=== PATIENT | female | born 1990 | race African-American/Black ===

== ENCOUNTER 2017-01-01 02:40 | Emergency (ER) | payer SELFPAY ==
[2017-01-01 03:44] LABS: ABSOLUTE MONOCYTES (AUTO) 0.8 10^3/uL (0.1-1.4); BASOPHILS % (AUTO) 0.4 % (0-2); EOSINOPHILS % (AUTO) 0.3 % (0-6); HEMATOCRIT 38.4 % (36.0-47.0); HEMOGLOBIN 13.2 g/dL (12.0-15.5); HGB HCT DIFFERENCE 1.2; LYMPHOCYTES % (AUTO) 11.3 % (13-45); MEAN CORPUSCULAR HEMOGLOBIN 32.2 pg (27.0-33.4); MEAN CORPUSCULAR HGB CONC 34.3 g/dL (32.0-36.0); MEAN CORPUSCULAR VOLUME 94 fl (80-97); MONOCYTES % (AUTO) 8.7 % (3-13); RED BLOOD COUNT 4.09 10^6/uL (3.72-5.28); RED CELL DISTRIBUTION WIDTH 13.3 % (11.5-14.0); SEGMENTED NEUTROPHILS % (AUTO) 79.3 % (42-78); WHITE BLOOD COUNT 8.9 10^3/uL (4.0-10.5)
[2017-01-01 03:57] LABS: ANION GAP 9 (5-19); BLOOD UREA NITROGEN 8 mg/dL (7-20); CARBON DIOXIDE 25 mmol/L (22-30); CHLORIDE 106 mmol/L (98-107); CREATININE RESULT 0.72 mg/dL (0.52-1.25); GLUCOSE 109 mg/dL (75-110); LIPASE 50.4 U/L (23-300); POTASSIUM 3.4 mmol/L (3.6-5.0); SODIUM 139.6 mmol/L (137-145)
[2017-01-01 04:00] LABS: APPEARANCE,URINE SLIGHTLY-CLOUDY; BILIRUBIN,URINE NEGATIVE (NEGATIVE); GLUCOSE, URINE NEGATIVE (NEGATIVE); KETONES,URINE TRACE mg/dL (NEGATIVE); LEUKOCYTE ESTERASE,URINE MODERATE (NEGATIVE); NITRITE,URINE POSITIVE (NEGATIVE); PROTEIN,URINE NEGATIVE (NEGATIVE); URINE SPECIFIC GRAVITY 1.012; UROBILINOGEN,URINE NEGATIVE mg/dL (<2.0)
[2017-01-01] MEDS ORDERED: KETOROLAC TROMETHAMINE INJ/PF 30 MG/1 ML SDV IV ONE (04:27)
[2017-01-01] MEDS ORDERED: PROCHLORPERAZINE EDISYLATE INJ 10 MG/2 ML VIAL IM ONE (04:27)
[2017-01-01] MEDS ORDERED: DIPHENHYDRAMINE HCL 50 MG/ML VIAL IV ONE (04:27)
[2017-01-01] MEDS ORDERED: IBUPROFEN 400 MG TABLET PO ONE (04:28)
--- NOTE | 2017-01-01 04:28 | ER Document Report ---
ED GI/ - General Chief Complaint: Flank Pain Stated Complaint: RIGHT FLANK PAIN Notes: Patient is a 26-year-old female presents emergency Department complaining of back pain, migraine, fever and nausea with vomiting. Patient states that all the symptoms started yesterday. She took Percocet for her pain that she threw it up. Patient states that Percocet makes her vomit. Admits to pelvic pain but denies any pyuria or hematuria. Last period was 12/21/2016. Does not have a primary care provider Denies any past medical history Past surgical history significant for D&C and tonsils and adenoids Social history is a 1 year pack smoker, denies any alcohol or drug use Allergies to Keflex TRAVEL OUTSIDE OF THE [place] IN LAST 30 DAYS: No - Related Data Allergies/Adverse Reactions: cephalexin [From [employer]] Allergy (Verified 01/01/17 02:49) Past Medical History - Social History Smoking Status: Current Every Day Smoker Family History: Reviewed & Not Pertinent Renal/ Medical History: Denies: Hx Peritoneal Dialysis Past Surgical History: Reports: Hx Adenoidectomy, Hx Tonsillectomy - Immunizations Hx Diphtheria, Pertussis, Tetanus Vaccination: Yes - unk Review of Systems - Review of Systems Constitutional: See HPI EENT: No symptoms reported Cardiovascular: No symptoms reported Respiratory: No symptoms reported Gastrointestinal: See HPI Genitourinary: See HPI Female Genitourinary: No symptoms reported Musculoskeletal: No symptoms reported Skin: No symptoms reported Hematologic/Lymphatic: No symptoms reported Neurological/Psychological: See HPI Physical Exam - Vital signs Vitals: Temp Pulse Resp BP Pulse Ox 101 F H 116 H 22 H 113/68 96 01/01/17 02:49 01/01/17 02:49 01/01/17 02:49 01/01/17 02:49 01/01/17 02:49 - Notes Notes: PHYSICAL EXAM GENERAL: Alert, interacts well. HEAD: Normocephalic, atraumatic. EYES: Pupils equal, round, and reactive to light. Extraocular movements intact. ENT: Oral mucosa moist, tongue midline. NECK: Full range of motion. Supple. Trachea midline. LUNGS: Clear to auscultation bilaterally, no wheezes, rales, or rhonchi. No respiratory distress. HEART: Regular rate and rhythm. No murmurs, gallops, or rubs. ABDOMEN: Soft, nondistended, nontender. No guarding, rebound, or rigidity.. Bowel sounds present in all 4 quadrants. Back: Tenderness to palpation on the right paraspinous muscles. Denies CVA tenderness EXTREMITIES: Moves all 4 extremities spontaneously. No edema, radial and dorsalis pedis pulses 2/4 bilaterally. No cyanosis. NEUROLOGICAL: Alert and oriented x3. Normal speech. PSYCH: Normal affect, normal mood. SKIN: Warm, dry, normal turgor. No rashes or lesions noted. Course - Re-evaluation Re-evalutation: 01/01/17 06:27 Patient is a 26-year-old female presents emergency Department with HIS symptoms. Currently he was afebrile, no acute distress and afebrile. Labs and urinalysis reveal evidence of UTI without any evidence of acute kidney infection. No leukocytosis on CBC. Will discharge patient home with antibiotics and pain medication and follow-up with primary care provider - Vital Signs Vital signs: Temp Pulse Resp BP Pulse Ox 98.9 F 78 15 112/69 98 01/01/17 05:58 01/01/17 05:58 01/01/17 05:58 01/01/17 05:58 01/01/17 05:58 - Laboratory Result Diagrams: 01/01/17 03:30 01/01/17 03:30 Laboratory results interpreted by me: 01/01/17 01/01/17 01/01/17 03:30 03:30 03:30 Plt Count 132 L Seg Neutrophils % 79.3 H Lymphocytes % 11.3 L Potassium 3.4 L Urine Ketones TRACE H Urine Blood MODERATE H Urine Nitrite POSITIVE H Ur Leukocyte Esterase MODERATE H Discharge - Discharge Clinical Impression: UTI (urinary tract infection) Condition: Good Disposition: HOME, SELF-CARE Additional Instructions: URINARY TRACT INFECTION: Your evaluation indicates that you have a urinary tract infection. This is due to germs growing in the bladder. This is a common problem. This infection usually responds quickly to antibiotics. Your antibiotic should be taken exactly as prescribed. Drink plenty of fluids -- three to four quarts a day. Occasionally, a bladder anesthetic will be prescribed to help stop the feeling of urgency until the antibiotic has a chance to clear the infection. This may cause your urine to be dark orange. Certain urine infections require a culture. If the doctor obtained a culture, the results will be back in two days. You should call to see if a change in treatment is needed. A repeat urinalysis after you finish treatment is often recommended. The physician will let you know if further testing is required. Call the doctor if you develop fever, chills, flank pain, inability to urinate, or blood in the urine. ANTIBIOTIC THERAPY: You have been given an antibiotic prescription. It's important that you take all the medication, unless instructed otherwise by your physician. Failure to complete the entire course can result in relapse of your condition. Common side effects of antibiotics include nausea, intestinal cramping, or diarrhea. Women may develop vaginal yeast infections, and babies can get yeast (thrush) in the mouth following the use of antibiotics. Contact your physician if you develop significant side effects from this medication. Allergy to this antibiotic can result in hives, wheezing, faintness, or itching. If symptoms of allergy occur, stop the medication and call the doctor. CIPROFLOXACIN: You have been given an antibacterial agent, ciprofloxacin (Cipro). This medicine is not related to the penicillins, sulfas, cephalosporins, or tetracyclines. It is often given to patients who are allergic to these drugs. It has been chosen for you either because other drugs are not appropriate, or because of the nature of your problem. Cipro should not be taken with antacids, as these can decrease its effectiveness. It can be taken without regard to meals. CIPRO SHOULD NOT BE TAKEN BY CHILDREN, NURSING WOMEN, OR WOMEN. Although Cipro is usually well-tolerated, common side effects can include nausea and diarrhea. Contact your doctor if you experience any unusual symptoms while on this medication, such as joint pain or swelling, shortness of breath, wheezing, faintness, or hives. FOLLOW-UP CARE: If you have been referred to a physician for follow-up care, call the physician s office for an appointment as you were instructed or within the next two days. If you experience worsening or a significant change in your symptoms, notify the physician immediately or return to the Emergency Department at any time for re-evaluation. Prescriptions: Ondansetron HCl [Zofran 4 mg Tablet] 1 - 2 tab PO Q4HP PRN #20 tablet PRN Reason: Tramadol HCl [Ultram 50 mg Tablet] 50 mg PO Q4HP PRN #30 tab PRN Reason: Ciprofloxacin HCl [Cipro 500 mg Tablet] 500 mg PO BID 5 Days Referrals: [facility] [NO LOCAL MD] - Follow up as needed
[2017-01-01] MEDS ORDERED: NORMAL SALINE 500 ML IV PRN (04:31)
[2017-01-01 05:58] VITALS: BP 112/69
== END 2017-01-01 05:58 | disposition home or self-care (01) ==
LOC: ER 02:40
DX: N39.0 Urinary tract infection, site not specified (principal); M54.9 Dorsalgia, unspecified; G43.909 Migraine, unspecified, not intractable, without status migrainosus; R11.2 Nausea with vomiting, unspecified; R50.9 Fever, unspecified; R10.2 Pelvic and perineal pain; F17.200 Nicotine dependence, unspecified, uncomplicated
CPT/HCPCS: 99284; 96372; 96361; 96374; 36415; 83690; 85025; 81025; 80048; 81001; J1200; J3490; J1885; J0780; J7040

== ENCOUNTER 2017-03-21 20:47 | Emergency (ER) | payer SELFPAY ==
[2017-03-21 23:04] LABS: ABSOLUTE BASOPHILS # (AUTO) 0.1 10^3/uL (0.0-0.2); ABSOLUTE EOSINOPHILS # (AUTO) 0.3 10^3/uL (0.0-0.6); ABSOLUTE LYMPHOCYTES (AUTO) 1.9 10^3/uL (0.5-4.7); ABSOLUTE MONOCYTES (AUTO) 0.8 10^3/uL (0.1-1.4); ABSOLUTE NEUT (AUTO) 4.7 10^3/uL (1.7-8.2); BASOPHILS % (AUTO) 0.7 % (0-2); EOSINOPHILS % (AUTO) 4.4 % (0-6); HEMATOCRIT 36.9 % (36.0-47.0); HEMOGLOBIN 12.8 g/dL (12.0-15.5); HGB HCT DIFFERENCE 1.5; LYMPHOCYTES % (AUTO) 24.3 % (13-45); MEAN CORPUSCULAR HEMOGLOBIN 32.5 pg (27.0-33.4); MEAN CORPUSCULAR HGB CONC 34.6 g/dL (32.0-36.0); MEAN CORPUSCULAR VOLUME 94 fl (80-97); MONOCYTES % (AUTO) 10.3 % (3-13); RED BLOOD COUNT 3.92 10^6/uL (3.72-5.28); RED CELL DISTRIBUTION WIDTH 13.1 % (11.5-14.0); SEGMENTED NEUTROPHILS % (AUTO) 60.3 % (42-78); WHITE BLOOD COUNT 7.8 10^3/uL (4.0-10.5)
[2017-03-21] MEDS ORDERED: ACETAMINOPHEN 325 MG TABLET PO ONE (23:18)
--- NOTE | 2017-03-21 23:19 | ER Document Report ---
ED GI/ - General Chief Complaint: Vaginal Bleeding Stated Complaint: VAGINAL BLEEDING/CRAMPING Time Seen by Provider: 03/21/17 23:06 Notes: Patient is a 26-year-old female, at 9 weeks gestation by first trimester ultrasound comes emergency department for chief complaint of vaginal bleeding with clots and lower abdominal cramping. She denies vomiting, fever, flank pain. Patient reports current cramping. TRAVEL OUTSIDE OF THE [place] IN LAST 30 DAYS: No - Related Data Allergies/Adverse Reactions: cephalexin [From K[employer]] Allergy (Verified 01/01/17 02:49) Past Medical History - General Information source: Patient - Social History Smoking Status: Never Smoker Frequency of alcohol use: None Drug Abuse: None Lives with: Family Family History: Reviewed & Not Pertinent - Medical History Medical History: Negative Renal/ Medical History: Denies: Hx Peritoneal Dialysis Past Surgical History: Reports: Hx Adenoidectomy, Hx Tonsillectomy - Immunizations Hx Diphtheria, Pertussis, Tetanus Vaccination: Yes - unk Review of Systems - Review of Systems Constitutional: No symptoms reported EENT: No symptoms reported Cardiovascular: No symptoms reported Respiratory: No symptoms reported Gastrointestinal: See HPI Genitourinary: See HPI Female Genitourinary: See HPI Musculoskeletal: No symptoms reported Skin: No symptoms reported Hematologic/Lymphatic: No symptoms reported Neurological/Psychological: No symptoms reported Physical Exam - Vital signs Vitals: Temp Pulse Resp BP Pulse Ox 98.3 F 89 16 118/75 100 03/21/17 21:39 03/21/17 21:39 03/21/17 21:39 03/21/17 21:39 03/21/17 21:39 Interpretation: Normal - General General appearance: Alert, Anxious In distress: None - HEENT Head: Normocephalic, Atraumatic Eyes: Normal Conjunctiva: Normal Extraocular movements intact: Yes Eyelashes: Normal Pupils: PERRL Mouth/Lips: Normal Mucous membranes: Normal Pharynx: Normal Neck: Normal - Respiratory Respiratory status: No respiratory distress Chest status: Nontender Breath sounds: Normal Chest palpation: Normal - Cardiovascular Rhythm: Regular. No: Tachycardia Heart sounds: Normal auscultation, S1 appreciated, S2 appreciated Murmur: No - Abdominal Inspection: Normal Distension: No distension Bowel sounds: Normal Tenderness: Tender - generalized lower abdominal tenderness; no rigidity or guarding Organomegaly: No organomegaly - Genitourinary Speculum exam: Cervix open - appears to be open, hard to specifically see with some bleeding and clots, Products of conception - small bluish appearing tissue removed from vaginal canal; none seen in the cervix Vaginal bleeding: Mild - Back Back: Normal, Nontender. No: Tender, CVA tenderness - Extremities General upper extremity: Normal inspection, Nontender, Normal color, Normal ROM , Normal temperature General lower extremity: Normal inspection, Nontender, Normal color, Normal ROM , Normal temperature, Normal weight bearing. No: Noah's sign - Neurological Neuro grossly intact: Yes Cognition: Normal Orientation: AAOx4 [place] Coma Scale Eye Opening: Spontaneous Di Coma Scale Verbal: Oriented Di Coma Scale Motor: Obeys Commands [place] Coma Scale Total: 15 Speech: Normal Motor strength normal: LUE, RUE, LLE, RLE Sensory: Normal - Skin Skin Temperature: Warm Skin Moisture: Dry Skin Color: Normal Course - Re-evaluation Re-evalutation: CBC unremarkable, hCG nonspecific, urinalysis has blood contamination but also has nitrates, as a result patient placed on Bactrim. Ultrasound concerning for miscarriage, shows area near the lower uterus which could be blood clots versus products of conception versus other etiology. I did a pelvic examination and there was a small amount of products of conception noted, small amount of blood clots, some bleeding, cervix appears to be somewhat open, no significant bleeding. Called and discussed with Dr. Sampson, OB /[facility] on-call, who recommends that based on the ultrasound patient is miscarrying most likely, discussed close follow-up for reevaluation, patient started on Bactrim, provided with pain medication, advised to follow-up within the next day or 2 with [facility] for reassessment, discussed return precautions in detail, patient and mother at bedside state understanding and agreement. - Vital Signs Vital signs: Temp Pulse Resp BP Pulse Ox 98.3 F 93 18 120/80 100 03/21/17 21:39 03/22/17 02:04 03/22/17 02:04 03/22/17 02:04 03/21/17 21:39 - Laboratory Result Diagrams: 03/21/17 22:59 Laboratory results interpreted by me: 03/21/17 03/21/17 03/21/17 22:59 22:59 22:59 Plt Count 136 L Beta HCG, Quant 5977.80 H Urine Protein 100 H Urine Blood LARGE H Urine Nitrite POSITIVE H Ur Leukocyte Esterase SMALL H Discharge - Discharge Clinical Impression: Vaginal bleeding, Miscarriage Condition: Stable Disposition: HOME, SELF-CARE Additional Instructions: Evaluation is consistent with miscarriage. Take the pain medication if needed, take the Bactrim antibiotic as directed for the urinary tract, follow up closely with the OBGYN as referred. Return for any concerning symptoms - fever, very heavy bleeding, dizziness, severe pain, or any other concerning symptoms. Prescriptions: Oxycodone HCl/Acetaminophen [Percocet 5-325 mg Tablet] 1 - 2 tab PO Q4H PRN #15 tablet PRN Reason: Sulfamethoxazole/Trimethoprim [Bactrim Ds Tablet] 1 each PO BID #14 tablet Referrals: [facility] [Provider Group] - Follow up tomorrow
[2017-03-21 23:36] LABS: APPEARANCE,URINE CLOUDY; BILIRUBIN,URINE NEGATIVE (NEGATIVE); GLUCOSE, URINE NEGATIVE (NEGATIVE); KETONES,URINE NEGATIVE (NEGATIVE); LEUKOCYTE ESTERASE,URINE SMALL (NEGATIVE); NITRITE,URINE POSITIVE (NEGATIVE); PROTEIN,URINE 100 mg/dL (NEGATIVE); UROBILINOGEN,URINE NEGATIVE mg/dL (<2.0)
--- NOTE | 2017-03-22 00:58 | RADIOLOGY REPORT (SQ) ---
EXAM DESCRIPTION: U/S OB TRANSVAG W/DOPPLER COMPLETED DATE/TIME: 03/22/2017 12:21 am REASON FOR STUDY: cramping, bleeding, + hcg COMPARISON: 7.. TECHNIQUE: Transvaginal static and realtime grayscale images acquired of the pelvis. Additional reymundo cted spectral and color Doppler images recorded. All images stored on PACs. [facility] [place] LIMITATIONS: None. FINDINGS: UTERUS: No visualized intrauterine . 2.7 x 2.4 x 1.6 cm heterogeneous avascular thickening of the endometrial cavity at the lower uterine segment ; otherwise 1.[address] str ipe thickness. 11.1 x 8 x 6 cm uterus. RIGHT ADNEXA: Normal ovary with normal vascular flow. No adnexal free fluid. No adnexal masses. 4.2 cm. LEFT ADNEXA: Normal ovary with normal vascular flow. No adnexal free fluid. No adnexal masses. 4.7 cm. The FREE FLUID: None. OTHER: No other significant finding. IMPRESSION: NO VISUALIZED INTRA- OR EXTRAUTERINE . 2.7 cm possible clot or retained produc ts of conception within the endometrial cavity at the lower uterine segment. Differential diagnosis includes failed 1st trimester with retained products of conception/c lot, occult ectopic gestation, or occult early viable gestation. ECTOPIC CANNOT BE EXCLUDED. FOLLOW-UP ULTRASOUND AND SERIAL BHCG LEVELS STRONGLY RECOMMENDED TO ACCURATELY ASSESS STATU S. COMMENT: HCG levels in early chart *3 weeks: 5-50 mIU/ml *4 weeks: 5-426 mIU/ml *5 weeks: 18-7,340 mIU/ml *6 weeks: 1,080-56,500 mIU/ml *7-8 weeks: 7,560-229,000 mIU/ml *9-12 weeks: 25,700- 288,000 mIU/ml *13-16 weeks: 13,300-254,000 mIU/ml *17-24 weeks: 4,060-165,400 mIU/ml *25-40 weeks: 3,640-117,000 mIU/ml TECHNICAL DOCUMENTATION: JOB ID: [id number]- All Rights Reserved
[2017-03-22] MEDS ORDERED: ONDANSETRON 4 MG TAB.RAPDIS PO ONE (01:20)
[2017-03-22] MEDS ORDERED: OXYCODONE-ACETAMINOPHEN 5-325 MG TABLET PO ONE (01:20)
[2017-03-22] MEDS ORDERED: SULFAMETHOXAZOLE/TRIMETHOPRIM 800-160 MG TABLET PO ONE (01:53)
[2017-03-22 02:05] VITALS: BP 120/80
== END 2017-03-22 02:05 | disposition home or self-care (01) ==
LOC: ER 20:47
DX: O03.9 Complete or unspecified spontaneous abortion without complication (principal); Z88.1 Allergy status to other antibiotic agents
CPT/HCPCS: 99284; 86900; 86901; 36415; 87086; 84702; 85025; 87088; 81001; 87186; 76817; 93976; S0119

== ENCOUNTER 2018-11-26 21:25 | Emergency (ER) | payer SELFPAY ==
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
[2018-11-27] MEDS ORDERED: HYDROCODONE/ACETAMINOPHEN 5-325 MG TABLET PO ONE (00:32)
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
[2018-11-27] MEDS ORDERED: LIDOCAINE 1%/EPINEPHRINE INJ 20 ML VIAL INJ ONE (02:01)
[2018-11-27] MEDS ORDERED: ONDANSETRON 4 MG TAB.RAPDIS PO ONE (02:02)
[2018-11-27] MEDS ORDERED: OXYCODONE-ACETAMINOPHEN 5-325 MG TABLET PO ONE ×2 (02:02→03:48)
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
[2018-11-27 04:01] VITALS: BP 115/73
== END 2018-11-27 04:01 | disposition home or self-care (01) ==
LOC: ER 21:25
DX: S02.2XXB Fracture of nasal bones, initial encounter for open fracture (principal); S09.90XA Unspecified injury of head, initial encounter; R07.81 Pleurodynia; Y04.2XXA Assault by strike against or bumped into by another person, initial encounter; Y92.009 Unspecified place in unspecified non-institutional (private) residence as the place of occurrence of the external cause; Z88.3 Allergy status to other anti-infective agents
CPT/HCPCS: 99284; 70160; 71101; 70450; 12011; S0119; J3490

== ENCOUNTER 2019-11-30 13:51 | Emergency (ER) | payer SELFPAY ==
--- NOTE | 2019-11-30 14:40 | ER Document Report ---
ED Medical Screen (RME) - General Chief Complaint: Flank Pain Stated Complaint: FLANK PAIN Time Seen by Provider: 11/30/19 14:33 TRAVEL OUTSIDE OF THE [place] IN LAST 30 DAYS: No - HPI Notes: 11/30/19 14:39 29-year-old female to the emergency department with complaints of bilateral flank pain that is been getting worse for the past 2 weeks. She states she also has cloudy foul-smelling urine. She states she is urinating frequently. She denies pain with urination. She does admit that sometimes her lower abdomen also is giving her pain. She states that she is about 6 weeks . She has not had an ultrasound to confirm placement of this yet. She denies any vaginal bleeding. She denies any nausea or vomiting. She denies any fevers. She is a G3, P2. I performed a brief medical screening exam on the patient determined that they will need further evaluation by main side provider. I placed initial orders to help expedite care. - Related Data Allergies/Adverse Reactions: cephalexin [From Keflex] Allergy (Verified 11/30/19 14:29) Past Medical History - Social History Frequency of alcohol use: None Drug Abuse: None Renal/ Medical History: Denies: Hx Peritoneal Dialysis Past Surgical History: Reports: Hx Adenoidectomy, Hx Tonsillectomy - Immunizations Hx Diphtheria, Pertussis, Tetanus Vaccination: Yes - unk Physical Exam - Vital signs Vitals: Temp Pulse Resp BP Pulse Ox 98.3 F 71 16 126/69 H 100 11/30/19 14:03 11/30/19 14:03 11/30/19 14:03 11/30/19 14:03 11/30/19 14:03 Course - Vital Signs Vital signs: Temp Pulse Resp BP Pulse Ox 98.3 F 71 16 126/69 H 100 11/30/19 14:03 11/30/19 14:03 11/30/19 14:03 11/30/19 14:03 11/30/19 14:03
--- NOTE | 2019-11-30 15:30 | RADIOLOGY REPORT (SQ) ---
EXAM DESCRIPTION: U/S RETROPERITON (RENAL/AORTA) COMPLETED DATE/TIME: 11/30/2019 3:16 pm REASON FOR STUDY: flank pain, foul smelling urine COMPARISON: None. TECHNIQUE: Dynamic and static grayscale images acquired of the kidneys and bladder and recorded on P ACS. Additional selected color Doppler and spectral images recorded. LIMITATIONS: None. FINDINGS: RIGHT KIDNEY: Normal size. Normal echogenicity. No solid or suspicious masses. No hydronep hrosis. No calcifications. LEFT KIDNEY: Normal size. Normal echogenicity. No solid or suspicious masses. No hydronephrosis. No calcifications. BLADDER: No masses. OTHER FINDINGS: No other significant finding. IMPRESSION: NORMAL RENAL AND BLADDER ULTRASOUND. TECHNICAL DOCUMENTATION: JOB ID: [id number] [employer]- All Rights Reserved Reading location - IP/workstation name: [email or web address]
--- NOTE | 2019-11-30 15:31 | RADIOLOGY REPORT (SQ) ---
EXAM DESCRIPTION: U/S OB TRANSVAGINAL W/O DOP COMPLETED DATE/TIME: 11/30/2019 3:21 pm REASON FOR STUDY: 6 weeks , flank/pelvic pain, ectopic eval COMPARISON: None. TECHNIQUE: Transabdominal static and realtime grayscale images acquired of the pelvis. Additional se lected spectral and color Doppler images recorded. All images stored on PACs. bHCG: Pending. CLINICAL DATES: 6 weeks 2 days LIMITATIONS: None. FINDINGS: FETUS: Single Living intrauterine . ULTRASOUND EGA: 6 weeks 6 days ULTRASOUND KATHRINE: 07/19/2020 EFW: Not applicable less than 20 weeks. CRL: 9 mm FHR: 124 beats per minute. SURVEY: Too early to assess. AMNIOTIC FLUID: Adequate amount. PLACENTA: Not yet developed due to early gestation. SUBCHORIONIC BLEED: No SIZE OF BLEED: Not applicable. UTERUS: No masses. No anomalies. CERVICAL LENGTH: 4.1 cm Closed. RIGHT ADNEXA: Normal ovary with normal vascular flow. No adnexal free fluid. 2 cm cyst. LEFT ADNEXA: Normal ovary with normal vascular flow. No adnexal free fluid. No adnexal masses. FREE FLUID: Trace OTHER: No other significant finding. IMPRESSION: LIVING INTRAUTERINE . EGA 6 weeks 6 days Trimester of : First trimester - 0 to 13 weeks. TECHNICAL DOCUMENTATION: JOB ID: [id number] [employer]- All Rights Reserved rev-03/16 Reading location - IP/workstation name: [email or web address]
--- NOTE | 2019-11-30 16:34 | ER Document Report ---
ED GI/ - General Chief Complaint: Flank Pain Stated Complaint: FLANK PAIN Time Seen by Provider: 11/30/19 14:33 Primary Care Provider: [facility] [Provider Group] - Follow up in 1 week Notes: Patient is a G3, P2, 29-year-old female who presents to the emergency department with a chief complaint of left low back pain. Patient states that she is about 6 weeks . States that she has some cloudy urine, but denies any dysuria. Patient has not had any care as of yet. Denies any past m edical history. She does not take any medications. TRAVEL OUTSIDE OF THE [place] IN LAST 30 DAYS: No - Related Data Allergies/Adverse Reactions: cephalexin [From [employer]] Allergy (Verified 11/30/19 14:29) Past Medical History - Social History Smoking Status: Never Smoker Frequency of alcohol use: None Drug Abuse: None Family History: Reviewed & Not Pertinent Patient has suicidal ideation: No Patient has homicidal ideation: No Renal/ Medical History: Denies: Hx Peritoneal Dialysis Past Surgical History: Reports: Hx Adenoidectomy, Hx Tonsillectomy - Immunizations Hx Diphtheria, Pertussis, Tetanus Vaccination: Yes - unk Review of Systems - Review of Systems Notes: REVIEW OF SYSTEMS: CONSTITUTIONAL : Denies recent illness. Denies recent unintentional weight loss. Denies fever, chills, or sweats. EENT: Denies eye, ear, throat, or mouth pain, discharge, or symptoms. Denies nasal or sinus congestion. CARDIOVASCULAR: Denies chest pain. RESPIRATORY: Denies shortness of breath, cough, congestion, difficulty breathing, or wheezing. GASTROINTESTINAL: Denies nausea, vomiting, and diarrhea. Denies abdominal pain. Denies constipation. GENITOURINARY: Denies difficulty urinating, burning, blood in urine, urgency or frequency. FEMALE GENITOURINARY: See HPI. MUSCULOSKELETAL: Denies neck and back pain. Denies joint pain or swelling. SKIN: Denies rash, itchiness, or lesions HEMATOLOGIC : Denies easy bruising or bleeding. LYMPHATIC: Denies swollen, painful, enlarged glands. NEUROLOGICAL: Denies no numbness or tingling denies weakness. Denies headache. Denies altered mental status. Denies alteration in speech. PSYCHIATRIC: Denies stress, anxiety, alteration in sleep patterns, or depression. All other systems reviewed and negative. Physical Exam - Vital signs Vitals: Temp Pulse Resp BP Pulse Ox 98.3 F 71 16 126/69 H 100 11/30/19 14:03 11/30/19 14:03 11/30/19 14:03 11/30/19 14:03 11/30/19 14:03 - Notes Notes: PHYSICAL EXAMINATION: GENERAL: Appears well, healthy, well-nourished, no acute distress. HEAD: Normocephalic, atraumatic. EYES: PERRL, conjunctiva normal, all extraocular movements intact, sclera nonicteric ENT: Moist mucous membranes. NECK: Supple, no noticeable swelling, redness, rash. Normal range of motion. LUNGS: Equal breath sounds bilaterally and clear to auscultation. No wheezes rales or rhonchi. CARDIOVASCULAR: S1-S2, regular rate, regular rhythm. Radial pulses 2+, normal. ABDOMEN: Normoactive bowel sounds. Soft, nontender, no guarding, no rebound tenderness, and no masses palpated. EXTREMITIES: Normal strength and range of motion, no pitting or edema. No cyanosis. NEUROLOGICAL: Moves all extremities upon command. Strength 5/5 in all extremities. PSYCH: Normal mood, normal affect. SKIN: Warm, dry. No rash, lesions, ulcerations noted. Normal skin turgor. BACK: No CVA tenderness, mild left lower back tenderness to palpation. Course - Re-evaluation Re-evalutation: 11/30/19 18:27 Patient has a very mild leukocytosis of 11,600. No shift. Chemistries are unremarkable. She has a beta-hCG of 61,937, consistent with her 6-week noted on ultrasound. Urinalysis shows 3+ bacteria and trace leukocytes. Due to the patient having symptoms and being , she will be treated with antibiotics. Discussed this case with Dr. chin. He is recommending that the patient be placed on Macrobid. Urine will be sent for culture. Follow-up precautions were given. Verbal discharge instructions were given to the patient. They verbalized understanding. They are stable for discharge. - Vital Signs Vital signs: Temp Pulse Resp BP Pulse Ox 97.9 F 77 18 124/62 100 11/30/19 19:12 11/30/19 19:12 11/30/19 19:12 11/30/19 19:12 11/30/19 19:12 - Laboratory Result Diagrams: 11/30/19 17:05 11/30/19 17:05 Laboratory results interpreted by me: 11/30/19 11/30/19 11/30/19 17:00 17:05 17:05 WBC 11.6 H BUN 6 L Creatinine 0.51 L Alkaline Phosphatase 37 L Beta HCG, Quant 65739.00 H Leukocyte Esterase Rfl TRACE H Discharge - Discharge Clinical Impression: Back pain Qualifiers: Back pain location: low back pain Chronicity: acute Back pain laterality: left Sciatica presence: without sciatica Qualified Code(s): M54.5 - Low back pain Urinary tract infection Qualifiers: Urinary tract infection type: acute cystitis Hematuria presence: without hematuria Qualified Code(s): N30.00 - Acute cystitis without hematuria Condition: Stable Disposition: HOME, SELF-CARE Instructions: Nitrofurantoin ([facility]), Urinary Tract Infection ([facility]) Additional Instructions: Your urine shows findings consistent with a urinary tract infection. Please take all the antibiotics as directed even if your symptoms have improved. Pl ease follow-up with your primary care physician as needed. Return to emergency room if you develop fever >101F, persistent vomiting, become lethargic, have severe pain in your sides, or any other symptoms that are concerning to you. Prescriptions: Nitrofurantoin Macrocrystal [Macrodantin] 100 mg PO BID 5 Days #20 capsule Referrals: [facility] [Provider Group] - Follow up in 1 week
[2019-11-30 17:21] LABS: ABSOLUTE BASOPHILS # (AUTO) 0.1 10^3/uL (0.0-0.2); ABSOLUTE EOSINOPHILS # (AUTO) 0.1 10^3/uL (0.0-0.6); ABSOLUTE LYMPHOCYTES (AUTO) 2.9 10^3/uL (0.5-4.7); ABSOLUTE MONOCYTES (AUTO) 0.6 10^3/uL (0.1-1.4); BASOPHILS % (AUTO) 0.7 % (0-2); EOSINOPHILS % (AUTO) 0.5 % (0-6); HEMATOCRIT 39.9 % (36.0-47.0); HEMOGLOBIN 13.7 g/dL (12.0-15.5); LYMPHOCYTES % (AUTO) 24.8 % (13-45); MEAN CORPUSCULAR HEMOGLOBIN 32.6 pg (27.0-33.4); MEAN CORPUSCULAR HGB CONC 34.4 g/dL (32.0-36.0); MEAN CORPUSCULAR VOLUME 95 fl (80-97); MONOCYTES % (AUTO) 5.2 % (3-13); PLATELET COUNT 186 10^3/uL (150-450); RED BLOOD COUNT 4.22 10^6/uL (3.72-5.28); RED CELL DISTRIBUTION WIDTH 12.9 % (11.5-14.0); SEGMENTED NEUTROPHILS % (AUTO) 68.8 % (42-78); TOTAL CELLS COUNTED % (AUTO) 100 %; WHITE BLOOD COUNT 11.6 10^3/uL (4.0-10.5)
[2019-11-30 17:31] LABS: APPEARANCE,URINE SLIGHTLY-CLOUDY; BILIRUBIN,URINE NEGATIVE (NEGATIVE); COLOR,URINE YELLOW; GLUCOSE, URINE NEGATIVE (NEGATIVE); KETONES,URINE NEGATIVE (NEGATIVE); PROTEIN,URINE NEGATIVE (NEGATIVE); URINE SPECIFIC GRAVITY 1.008; UROBILINOGEN,URINE NEGATIVE mg/dL (<2.0)
[2019-11-30 17:56] LABS: ALKALINE PHOSPHATASE 37 U/L (38-126); ANION GAP 10 (5-19); ASPARTATE AMINO TRANSFERASE 18 U/L (14-36); BILIRUBIN,DIRECT 0.2 mg/dL (0.0-0.4); BILIRUBIN,TOTAL 0.4 mg/dL (0.2-1.3); BLOOD UREA NITROGEN 6 mg/dL (7-20); CALCIUM 9.3 mg/dL (8.4-10.2); CARBON DIOXIDE 25 mmol/L (22-30); CHLORIDE 104 mmol/L (98-107); GLUCOSE 83 mg/dL (75-110); POTASSIUM 3.9 mmol/L (3.6-5.0); TOTAL PROTEIN 6.9 g/dL (6.3-8.2)
[2019-11-30] MEDS ORDERED: LIDOCAINE 1% INJ-PF (10 MG/ML) 30 ML SDV INJ ONE (18:17)
[2019-11-30] MEDS ORDERED: CEFTRIAXONE INJ 1000 MG VIAL IM ONE (18:17)
[2019-11-30 19:00] LABS: CHLAM PCR NOT DETECTED (NOT DETECT)
[2019-11-30 19:13] VITALS: BP 124/62
== END 2019-11-30 19:13 | disposition home or self-care (01) ==
LOC: ER 13:51
DX: O23.91 Unspecified genitourinary tract infection in pregnancy, first trimester (principal); N30.00 Acute cystitis without hematuria; O26.891 Other specified pregnancy related conditions, first trimester; M54.5 Low back pain; R10.9 Unspecified abdominal pain; Z3A.01 Less than 8 weeks gestation of pregnancy
CPT/HCPCS: 99284; 96372; 36415; 84702; 85025; 80053; 81001; 87491; 87591; 76817; 76770; J3490; J0696

== ENCOUNTER 2020-01-07 16:57 | Emergency (ER) | payer SELFPAY ==
--- NOTE | 2020-01-07 18:13 | ER Document Report ---
ED Medical Screen (RME) - General Chief Complaint: Abdominal Pain Stated Complaint: ABDOMINAL PAIN, VAGINAL BLEEDING Time Seen by Provider: 01/07/20 18:10 Mode of Arrival: Ambulatory Information source: Patient Notes: 29-year-old female presented to ED for complaint of pelvic pain vaginal bleeding with clots. She is 13 weeks 6 days . She states she does feel like she might be having a miscarriage she is alert oriented respirations regular nonlabored speaking in full sentences. She states that she had pink vaginal discharge on Monday night but it is progressively gotten heavier more red and more clots since then. She states the cramping started on Monday and is gotten more progressive as the day went on yesterday and now it is much worse. She is 3 para 2 I have greeted and performed a rapid initial assessment of this patient. A comprehensive ED assessment and evaluation of the patient, analysis of test results and completion of medical decision making process will be conducted by an additional ED providers. TRAVEL OUTSIDE OF THE [place] IN LAST 30 DAYS: No - Related Data Allergies/Adverse Reactions: cephalexin [From Keflex] Allergy (Verified 01/07/20 18:11) Past Medical History Renal/ Medical History: Denies: Hx Peritoneal Dialysis Past Surgical History: Reports: Hx Adenoidectomy, Hx Tonsillectomy - Immunizations Hx Diphtheria, Pertussis, Tetanus Vaccination: Yes - unk Physical Exam - Vital signs Vitals: Temp Pulse Resp BP 98.9 F 94 16 131/57 H 01/07/20 17:13 01/07/20 17:13 01/07/20 17:13 01/07/20 17:13 Course - Vital Signs Vital signs: Temp Pulse Resp BP Pulse Ox 98.9 F 94 16 131/57 H 01/07/20 17:13 01/07/20 17:13 01/07/20 17:13 01/07/20 17:13
[2020-01-07 19:25] LABS: ABSOLUTE EOSINOPHILS # (AUTO) 0.2 10^3/uL (0.0-0.6); ABSOLUTE LYMPHOCYTES (AUTO) 2.6 10^3/uL (0.5-4.7); ABSOLUTE MONOCYTES (AUTO) 0.7 10^3/uL (0.1-1.4); ABSOLUTE NEUT (AUTO) 7.7 10^3/uL (1.7-8.2); BASOPHILS % (AUTO) 0.4 % (0-2); HEMATOCRIT 37.1 % (36.0-47.0); HEMOGLOBIN 13.3 g/dL (12.0-15.5); LYMPHOCYTES % (AUTO) 23.4 % (13-45); MEAN CORPUSCULAR HEMOGLOBIN 33.1 pg (27.0-33.4); MEAN CORPUSCULAR HGB CONC 35.8 g/dL (32.0-36.0); MEAN CORPUSCULAR VOLUME 92 fl (80-97); MONOCYTES % (AUTO) 5.9 % (3-13); PLATELET COUNT 161 10^3/uL (150-450); RED BLOOD COUNT 4.02 10^6/uL (3.72-5.28); RED CELL DISTRIBUTION WIDTH 12.6 % (11.5-14.0); SEGMENTED NEUTROPHILS % (AUTO) 68.3 % (42-78); TOTAL CELLS COUNTED % (AUTO) 100 %; WHITE BLOOD COUNT 11.3 10^3/uL (4.0-10.5)
[2020-01-07 19:35] LABS: APPEARANCE,URINE SLIGHTLY-CLOUDY; BILIRUBIN,URINE NEGATIVE (NEGATIVE); COLOR,URINE YELLOW; GLUCOSE, URINE NEGATIVE (NEGATIVE); KETONES,URINE NEGATIVE (NEGATIVE); PROTEIN,URINE 30 mg/dL (NEGATIVE); URINE SPECIFIC GRAVITY 1.021; UROBILINOGEN,URINE NEGATIVE mg/dL (<2.0)
[2020-01-07 19:42] LABS: ALBUMIN 3.9 g/dL (3.5-5.0); ALKALINE PHOSPHATASE 54 U/L (38-126); ANION GAP 8 (5-19); ASPARTATE AMINO TRANSFERASE 23 U/L (14-36); BACTERIA,URINE TRACE /HPF; BILIRUBIN,DIRECT 0.3 mg/dL (0.0-0.4); BILIRUBIN,TOTAL 0.3 mg/dL (0.2-1.3); BLOOD UREA NITROGEN 10 mg/dL (7-20); CARBON DIOXIDE 27 mmol/L (22-30); CHLORIDE 103 mmol/L (98-107); GLUCOSE 81 mg/dL (75-110); POTASSIUM 3.9 mmol/L (3.6-5.0); RBC,URINE 50-100 /HPF; TOTAL PROTEIN 6.9 g/dL (6.3-8.2)
[2020-01-07] MEDS ORDERED: ACETAMINOPHEN 325 MG TABLET PO ONE (20:35)
--- NOTE | 2020-01-07 20:40 | ER Document Report ---
ED General - General Chief Complaint: Vag Bleeding, +preg <12wks Stated Complaint: ABDOMINAL PAIN, VAGINAL BLEEDING Time Seen by Provider: 01/07/20 18:10 Mode of Arrival: Ambulatory TRAVEL OUTSIDE OF THE [place] IN LAST 30 DAYS: No - HPI Notes: Patient is a 29-year-old female approximately 12 weeks 2 days (via US estimation on 11/30) with no other significant past medical history presents complaining of lower abdominal cramping and bleeding that began Monday and has progressed since then. She is able to eat and drink without difficulty. She is urinating normally and having normal bowel movements. Patient states that she does have some lower back soreness as well. Denies any headache, fever, neck pain, URI, sore throat, chest pain, palpitations, syncope, cough, shortness of breath, wheeze, dyspnea, nausea/vomiting/diarrhea, urinary retention, dysuria, hematuria, loss of control of bowel or bladder, numbness/tingling, saddle anesthesia, muscle paralysis/weakness, or rash. Patient has no concerns of STDs or STIs. She has not had any other vaginal odor or discharge. - Related Data Allergies/Adverse Reactions: cephalexin [From Keflex] Allergy (Verified 01/07/20 18:11) Past Medical History - General Information source: Patient - Social History Smoking Status: Former Smoker Family History: Reviewed & Not Pertinent Patient has suicidal ideation: No Patient has homicidal ideation: No Renal/ Medical History: Denies: Hx Peritoneal Dialysis Past Surgical History: Reports: Hx Adenoidectomy, Hx Tonsillectomy - Immunizations Hx Diphtheria, Pertussis, Tetanus Vaccination: Yes - unk Review of Systems - Review of Systems -: Yes All other systems reviewed and negative Physical Exam - Vital signs Vitals: Temp Pulse Resp BP 98.9 F 94 16 131/57 H 01/07/20 17:13 01/07/20 17:13 01/07/20 17:13 01/07/20 17:13 - Notes Notes: PHYSICAL EXAMINATION: GENERAL: Well-appearing, well-nourished and in no acute distress. HEAD: Atraumatic, normocephalic. EYES: Pupils equal round and reactive to light, extraocular movements intact, sclera anicteric, conjunctiva are normal. ENT: Nares patent and without discharge. oropharynx clear without exudates. No tonsilar hypertrophy or erythema. Moist mucous membranes. NECK: Normal range of motion, supple without lymphadenopathy LUNGS: Breath sounds clear to auscultation bilaterally and equal. No wheezes rales or rhonchi. HEART: Regular rate and rhythm without murmurs, rubs, gallops. ABDOMEN: Soft, nondistended abdomen. No guarding, no rebound. Normal bowel sounds present. No CVA tenderness bilaterally. + mild lower pelvic tenderness. No tenderness at McBurney. Plummer neg. Musculoskeletal: FROM to passive/active. Strength 5+/5. Back: FROM. SLR neg. No vertebral point tenderness. + reproducible tenderness L-paraspinal mm. Extremities: No cyanosis, clubbing, or edema b/l. Peripheral pulses 2+. Capillary refill less than 3 seconds. NEUROLOGICAL: Normal speech, normal gait. PSYCH: Normal mood, normal affect. SKIN: Warm, Dry, normal turgor, no rashes or lesions noted. Course - Re-evaluation Re-evalutation: 01/07/20 21:02 Patient is an afebrile, well-hydrated, 29-year-old female who presents to the ED with bleeding in early findings suggestive of demise. Vitals are acceptable without any significant tachycardia, tachypnea, or hypoxia. PE is otherwise unremarkable. Labs grossly acceptable. HCG decreased but she is just over 12 weeks so accuracy starts to come into question. TVUS shows irregular gest sac w/o pole measuring approx 5wk 5 days, when she measured 6 weeks/6 days on 11/30/19. UA unremarkable. Patient is nontoxic-appearing is tolerating p.o. without any difficulties. No other labs or imaging warranted at this time based on H&P. Low suspicion/risk for acute appendicitis, bowel obstruction, acute cholecystitis, acute cholangitis, perforated diverticulitis, incarcerated hernia, pancreatitis, perforated ulcer, peritonitis, sepsis, pelvic inflammatory disease, ectopic , tubo-ovarian abscess, ovarian torsion, or other systemic emergent condition at this time. Patient is aware that her condition can change from initial presentation and she needs to monitor symptoms closely and seek medical attention if any acute changes. Conservative measures otherwise for symptoms. Call your OBGYN tomorrow for f/u and further guidance. Return to the ED with any worsening/concerning symptoms otherwise as reviewed in discharge. Patient is in agreement. - Vital Signs Vital signs: Temp Pulse Resp BP Pulse Ox 98.9 F 94 16 131/57 H 01/07/20 17:13 01/07/20 17:13 01/07/20 17:13 01/07/20 17:13 - Laboratory Result Diagrams: 01/07/20 19:00 01/07/20 19:00 Laboratory results interpreted by me: 01/07/20 01/07/20 01/07/20 19:00 19:00 19:00 WBC 11.3 H Beta HCG, Quant 09810.00 H Urine Protein 30 H Urine Blood LARGE H Discharge - Discharge Clinical Impression: Bleeding in early Condition: Stable Disposition: HOME, SELF-CARE Additional Instructions: Maintain fluid intake Proper hygienic technique Keep the skin clean Tylenol/ibuprofen as needed Contact your [facility] tomorrow to schedule follow-up and for further guidance Return to the ED with any development of REDDY/fever, trouble with vision, eye redness, worsening pain, urethral discharge, urinary retention, blood in the urine, flank pain, abdominal pain, n/v, Chest Pain, shortness of breath, joint pains, trouble breathing, or any other worsening/concerning symptoms as needed otherwise. Forms: Elevated Blood Pressure Referrals: [facility] [Provider Group] - Follow up tomorrow
--- NOTE | 2020-01-07 20:45 | RADIOLOGY REPORT (SQ) ---
US PELVIS EXAM DATE: 01/07/2020 6:14 PM CDT HISTORY: Early . Pelvic pain. COMPARISON: 11/30/2019 TECHNIQUE: Grayscale, color Doppler, and spectral Doppler ultrasound images of the pelvis were obtained. FINDINGS: There is an irregular gestational sac with a mean sac diameter of 1.03 cm corresponding to 5 weeks 5 days of . There is a possible yolk sac but no pole identified. The endometrium appears heterogeneous. The right ovary measures 4.9 cm, and the left ovary is not visualized. No pelvic free fluid. IMPRESSION: Irregular gestational sac corresponding to 5 weeks 5 days of . No pole seen at this time. Correlate with beta hCG values and consider short-term follow-up ultrasound imaging.
[2020-01-07 21:22] VITALS: BP 130/64
== END 2020-01-07 21:19 | disposition home or self-care (01) ==
LOC: ER 16:57
DX: O20.9 Hemorrhage in early pregnancy, unspecified (principal); O26.899 Other specified pregnancy related conditions, unspecified trimester; R10.30 Lower abdominal pain, unspecified; Z3A.00 Weeks of gestation of pregnancy not specified; Z88.1 Allergy status to other antibiotic agents; Z87.891 Personal history of nicotine dependence
CPT/HCPCS: 36415; 76801; 80053; 81001; 84702; 85025; 99284

== ENCOUNTER 2020-06-18 09:29 | Emergency (ER) | payer OTHER ==
--- NOTE | 2020-06-18 09:51 | EKG REPORT ---
SEVERITY:- NORMAL ECG - SINUS RHYTHM : Confirmed by: Vivienne Saavedra 18-Jun-2020 09:51:13
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
[2020-06-18 11:18] LABS: ABSOLUTE BASOPHILS # (AUTO) 0.1 10^3/uL (0.0-0.2); ABSOLUTE EOSINOPHILS # (AUTO) 0.2 10^3/uL (0.0-0.6); ABSOLUTE LYMPHOCYTES (AUTO) 2.8 10^3/uL (0.5-4.7); ABSOLUTE MONOCYTES (AUTO) 0.7 10^3/uL (0.1-1.4); ABSOLUTE NEUT (AUTO) 4.3 10^3/uL (1.7-8.2); BASOPHILS % (AUTO) 0.8 % (0-2); EOSINOPHILS % (AUTO) 2.3 % (0-6); HEMATOCRIT 39.4 % (36.0-47.0); HEMOGLOBIN 13.4 g/dL (12.0-15.5); LYMPHOCYTES % (AUTO) 34.9 % (13-45); MEAN CORPUSCULAR HEMOGLOBIN 32.3 pg (27.0-33.4); MEAN CORPUSCULAR VOLUME 95 fl (80-97); MONOCYTES % (AUTO) 8.3 % (3-13); PLATELET COUNT 174 10^3/uL (150-450); RED BLOOD COUNT 4.15 10^6/uL (3.72-5.28); RED CELL DISTRIBUTION WIDTH 13.5 % (11.5-14.0); SEGMENTED NEUTROPHILS % (AUTO) 53.7 % (42-78); TOTAL CELLS COUNTED % (AUTO) 100 %
[2020-06-18 11:45] LABS: ALBUMIN 3.9 g/dL (3.5-5.0); ALKALINE PHOSPHATASE 45 U/L (38-126); ANION GAP 7 (5-19); ASPARTATE AMINO TRANSFERASE 24 U/L (14-36); BILIRUBIN,TOTAL 0.2 mg/dL (0.2-1.3); BLOOD UREA NITROGEN 10 mg/dL (7-20); CALCIUM 9.3 mg/dL (8.4-10.2); CARBON DIOXIDE 27 mmol/L (22-30); CHLORIDE 108 mmol/L (98-107); GLUCOSE 92 mg/dL (75-110); POTASSIUM 4.1 mmol/L (3.6-5.0); TOTAL PROTEIN 6.5 g/dL (6.3-8.2)
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
[2020-06-18 14:23] VITALS: BP 111/63
== END 2020-06-18 14:23 | disposition home or self-care (01) ==
LOC: ER 09:29
DX: S00.81XA Abrasion of other part of head, initial encounter (principal); S01.80XA Unspecified open wound of other part of head, initial encounter; S16.1XXA Strain of muscle, fascia and tendon at neck level, initial encounter; S90.812A Abrasion, left foot, initial encounter; S91.312A Laceration without foreign body, left foot, initial encounter; R51 Headache; M54.2 Cervicalgia; R07.9 Chest pain, unspecified; R10.9 Unspecified abdominal pain; V89.2XXA Person injured in unspecified motor-vehicle accident, traffic, initial encounter; F17.200 Nicotine dependence, unspecified, uncomplicated; Z88.1 Allergy status to other antibiotic agents
CPT/HCPCS: 36415; 70450; 71260; 72125; 74177; 80053; 84703; 85025; 93005; 93010; 99285

== ENCOUNTER 2020-10-15 21:46 | Emergency (ER) | payer SELFPAY ==
--- NOTE | 2020-10-15 23:31 | ER Document Report ---
ED Medical Screen (RME) - General Chief Complaint: OB Problem (<20wks) Stated Complaint: VAGINAL BLEEDING Time Seen by Provider: 10/15/20 23:31 Mode of Arrival: Ambulatory Information source: Patient Notes: Patient is a 29-year-old female comes emergency room complaining of sudden onset of vaginal bleeding. Patient states that her last menstrual period was on August 28. She is a 5 para 2 with 2 spontaneous in the past. 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 She states that she had some gushing blood no clots were passed and that she has gone through 1 pad since leaving work 2 hours prior to arrival. Patient has had 2 vaginal deliveries in the past. Vital signs here show her to have a temp of 98.4 a saturation of 100% heart rate of 80 bpm blood pressure 120/79 and a 16 respiratory rate. Patient is a well-nourished well-developed 29-year-old female who is in no apparent distress on examination this evening. Cardiac: Regular rate and rhythm no murmurs auscultated. Lungs: Bilateral breath sounds increased clear to auscultation no rhonchi rales or wheeze are heard. Abdomen: In the sitting position patient displays no tenderness to palpation. Bowel sounds are present all 4 quads. I did look patient blood type up in the past patient is AB+ has not needed RhoGam in the past. This time we will not repeat that. I have greeted and performed a rapid initial assessment of this patient. A comprehensive ED assessment and evaluation of the patient, analysis of test results and completion of the medical decision making process will be conducted by additional ED providers. Dictation of this chart was performed using voice recognition software; therefore, there may be some unintended grammatical errors. TRAVEL OUTSIDE OF THE [place] IN LAST 30 DAYS: No - Related Data Allergies/Adverse Reactions: cephalexin [From Keflex] Allergy (Verified 06/18/20 11:51) Past Medical History Renal/ Medical History: Denies: Hx Peritoneal Dialysis Past Surgical History: Reports: Hx Adenoidectomy, Hx Tonsillectomy - Immunizations Hx Diphtheria, Pertussis, Tetanus Vaccination: Yes - unk Physical Exam - Vital signs Vitals: Temp Pulse Resp BP Pulse Ox 98.4 F 80 16 120/79 100 10/15/20 22:24 10/15/20 22:24 10/15/20 22:24 10/15/20 22:24 10/15/20 22:24 Course - Vital Signs Vital signs: Temp Pulse Resp BP Pulse Ox 98.4 F 80 16 120/79 100 10/15/20 22:24 10/15/20 22:24 10/15/20 22:24 10/15/20 22:24 10/15/20 22:24
[2020-10-16 01:27] LABS: ABSOLUTE EOSINOPHILS # (AUTO) 0.1 10^3/uL (0.0-0.6); ABSOLUTE LYMPHOCYTES (AUTO) 3.1 10^3/uL (0.5-4.7); ABSOLUTE MONOCYTES (AUTO) 0.8 10^3/uL (0.1-1.4); ABSOLUTE NEUT (AUTO) 9.3 10^3/uL (1.7-8.2); BASOPHILS % (AUTO) 0.3 % (0-2); HEMATOCRIT 37.4 % (36.0-47.0); HEMOGLOBIN 12.6 g/dL (12.0-15.5); MEAN CORPUSCULAR HEMOGLOBIN 31.1 pg (27.0-33.4); MEAN CORPUSCULAR HGB CONC 33.6 g/dL (32.0-36.0); MEAN CORPUSCULAR VOLUME 93 fl (80-97); PLATELET COUNT 191 10^3/uL (150-450); RED BLOOD COUNT 4.04 10^6/uL (3.72-5.28); RED CELL DISTRIBUTION WIDTH 14.2 % (11.5-14.0); SEGMENTED NEUTROPHILS % (AUTO) 69.7 % (42-78); TOTAL CELLS COUNTED % (AUTO) 100 %; WHITE BLOOD COUNT 13.3 10^3/uL (4.0-10.5)
[2020-10-16 01:38] LABS: ALBUMIN 3.9 g/dL (3.5-5.0); ALKALINE PHOSPHATASE 49 U/L (38-126); ASPARTATE AMINO TRANSFERASE 19 U/L (14-36); BILIRUBIN,DIRECT 0.1 mg/dL (0.0-0.4); BILIRUBIN,TOTAL 0.3 mg/dL (0.2-1.3); BLOOD UREA NITROGEN 7 mg/dL (7-20); CALCIUM 9.6 mg/dL (8.4-10.2); GLUCOSE 72 mg/dL (75-110); POTASSIUM 3.4 mmol/L (3.6-5.0); TOTAL PROTEIN 6.8 g/dL (6.3-8.2)
[2020-10-16 01:44] LABS: ANION GAP 5 (5-19); CARBON DIOXIDE 26 mmol/L (22-30); CHLORIDE 102 mmol/L (98-107)
--- NOTE | 2020-10-16 03:18 | RADIOLOGY REPORT (SQ) ---
EXAM: US , Transvaginal EXAM DATE/TIME: 10/16/2020 02:34 CLINICAL HISTORY: The patient is 29 years old and is Female; bleeding, Rule out ectopic TECHNIQUE: Real-time transvaginal obstetrical ultrasound of the maternal pelvis and a first trimester with image documentation. Transvaginal imaging was used for better evaluation of the fetus and adnexa. COMPARISON: OB ultrasound from 01/07/2020 FINDINGS: GESTATION: There is a single intrauterine gestational sac containing a yolk sac and pole. Estimated gestational age based on crown-rump length is 10 weeks 4 days. KATHRINE by this ultrasound is 05/10/2021. heart rate is 168 bpm. PLACENTA/AMNIOTIC FLUID: There is an area of subchorionic hemorrhage measuring 1.8 x 0.8 x 1.8 cm. UTERUS/CERVIX: The uterus measures 14.0 x 8.0 x 9.9 cm. No myometrial mass. The cervix measures 2.7 cm in length and is closed. OVARIES: The right ovary was not visualized, possibly due to bowel gas. The left ovary measures 4.9 x 3.6 x 2.5 cm. There is a complex left ovarian cyst measuring 2.3 x 2.1 x 2.0 cm. This may represent a corpus luteal cyst. Blood flow is demonstrated in the left ovary. No obvious adnexal mass. FREE FLUID: No free fluid. IMPRESSION: 1. Single viable intrauterine with estimated gestational age of 10 weeks 4 days. 2. Small area of subchorionic hemorrhage. 3. Complex left ovarian cyst, which may represent a corpus luteal cyst. The right ovary is not visualized on this exam.
[2020-10-16 03:39] LABS: APPEARANCE,URINE CLEAR; BILIRUBIN,URINE NEGATIVE (NEGATIVE); COLOR,URINE YELLOW; GLUCOSE, URINE NEGATIVE (NEGATIVE); KETONES,URINE 20 mg/dL (NEGATIVE); LEUKOCYTE ESTERASE,URINE NEGATIVE (NEGATIVE); NITRITE,URINE POSITIVE (NEGATIVE); PROTEIN,URINE NEGATIVE (NEGATIVE); URINE SPECIFIC GRAVITY 1.012; UROBILINOGEN,URINE NEGATIVE mg/dL (<2.0)
--- NOTE | 2020-10-16 03:54 | ER Document Report ---
ED General - General Chief Complaint: OB Problem (<20wks) Stated Complaint: VAGINAL BLEEDING Time Seen by Provider: 10/15/20 23:31 Mode of Arrival: Ambulatory Notes: 29-year-old female G5, P2 with no other significant medical history presents with 1 day of vaginal bleeding consisting of low volume bright red blood using 2 pads over the day that she has been bleeding neither of which was fully soaked. Patient also endorses some midline pelvic cramping pain that she can feel in her back. Patient denies any dizziness, chest pain, shortness of breath, syncope, bleeding diatheses, anticoagulation, trauma, fever, vaginal discharge, urinary symptoms. Patient has previously had IUP confirmed and is Rh+. 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 Has been eating and drinking well without any vomiting TRAVEL OUTSIDE OF THE [place] IN LAST 30 DAYS: No - Related Data Allergies/Adverse Reactions: cephalexin [From Keflex] Allergy (Verified 06/18/20 11:51) Past Medical History - General Information source: Patient Last Menstrual Period: 08/28 - Social History Smoking Status: Never Smoker Family History: Reviewed & Not Pertinent Renal/ Medical History: Denies: Hx Peritoneal Dialysis Past Surgical History: Reports: Hx Adenoidectomy, Hx Tonsillectomy - Immunizations Hx Diphtheria, Pertussis, Tetanus Vaccination: Yes - unk Review of Systems - Review of Systems Notes: REVIEW OF SYSTEMS: CONSTITUTIONAL : Denies fever, chills, or sweats. EENT: Denies recent cold/sinus symptoms, denies throat pain CARDIOVASCULAR: Denies chest pain, OLEKSANDR RESPIRATORY: Denies cough, denies shortness of breath. GASTROINTESTINAL: Denies abdominal pain, nausea/vomiting. GENITOURINARY: Denies difficulty urinating, painful urination. FEMALE GENITOURINARY: + abnormal vaginal bleeding, -vaginal discharge. MUSCULOSKELETAL: Denies neck pain, back pain. SKIN: Denies rash or skin lesions. HEMATOLOGIC : Denies easy bruising or bleeding. LYMPHATIC: Denies swollen, enlarged glands. NEUROLOGICAL: Denies headache, denies change in gait. PSYCHIATRIC: Denies anxiety or stress or depression. Physical Exam - Vital signs Vitals: Temp Pulse Resp BP Pulse Ox 98.4 F 80 16 120/79 100 10/15/20 22:24 10/15/20 22:24 10/15/20 22:24 10/15/20 22:24 10/15/20 22:24 - Notes Notes: PHYSICAL EXAMINATION: GENERAL: Well-appearing, well-nourished young woman sitting up in stretcher in no acute distress. HEAD: Atraumatic, normocephalic. EYES: Pupils equal round and appropriate constriction, sclera anicteric, conjunctiva are normal. ENT: nares patent, moist mucous membranes. NECK: Normal range of motion, supple without lymphadenopathy LUNGS: Breath sounds clear to auscultation bilaterally and equal. No wheezes rales or rhonchi. HEART: Regular rate and rhythm without murmurs ABDOMEN: Soft, nontender, no guarding, no masses, no CVAT EXTREMITIES: Normal range of motion, no pitting or edema. No cyanosis. NEUROLOGICAL: Awake, alert, conversing appropriately, moves all extremities spontaneously. PSYCH: Normal mood, normal affect. SKIN: Warm, Dry, normal turgor, no rashes or lesions noted. Course - Re-evaluation Re-evalutation: 10/16/20 03:53 Stable patient with normal exam and normal vital signs. Low volume for trimester bleeding in confirmed IUP, rule out miscarriage, Rh+. No signs of any infectious etiology precipitating current symptoms. Will check for asymptomatic bacteriuria, obtain ultrasound, check hemoglobin, and check for open cervix if not able to visualize on ultrasound. Likely DC with close OB follow-up and return precautions 10/16/20 04:55 Live IUP with subchorionic hematoma abnormal heart rate on ultrasound with closed cervix, given low volume of bleeding and inability to confirm closed cervix on ultrasound no indication for pelvic exam at this time. Patient has no urinary symptoms however positive nitrates in urine will treat as asymptomatic bacteriuria, but not knowing susceptibility will give 3 days of amoxicillin as patient is significantly allergic to cephalexin but has taken amoxicillin and penicillin in the past without any problems. Patient ready for discharge with PCP and OB follow-up, given return precautions which she demonstrated understanding of. Very borderline low sodium and potassium, repleted potassium and instructed patient to follow this up. - Vital Signs Vital signs: Temp Pulse Resp BP Pulse Ox 98.4 F 80 16 120/79 100 10/15/20 22:24 10/15/20 22:24 10/15/20 22:24 12/17/20 22:24 10/15/20 22:24 - Laboratory Results Result Diagrams: 10/16/20 01:12 10/16/20 01:12 Laboratory Results Interpreted: 10/16/20 10/16/20 10/16/20 01:12 01:12 03:15 WBC 13.3 H RDW 14.2 H Absolute Neuts (auto) 9.3 H Sodium 133.2 L Potassium 3.4 L Glucose 72 L Beta HCG, Quant 69720.00 H Urine Ketones 20 H Urine Blood MODERATE H Urine Nitrite POSITIVE H Critical Laboratory Results Reviewed: No Critical Results - Radiology Results Critical Radiology Results Reviewed: No Critical Results Discharge - Discharge Clinical Impression: Threatened affecting intrauterine , Asymptomatic bacteriuria, Hyponatremia, Hypokalemia Subchorionic hematoma in first trimester Qualifiers: Fetus number: single or unspecified fetus Qualified Code(s): O41.8X10 - Other specified disorders of amniotic fluid and membranes, first trimester, not applicable or unspecified; O46.8X1 - Other antepartum hemorrhage, first trimester Disposition: HOME, SELF-CARE Additional Instructions: Threatened Miscarriage You have been evaluated for a possible miscarriage. At this time, there is no indication that a miscarriage will occur. Most women with your symptoms will go on to have a perfectly normal baby. However, careful observation will be necessary. A miscarriage occurs when the fetus is abnormal. There is no medicine or treatment for it. You should rest in bed until the symptoms have resolved. Do not douche or have sex for at least a week, or until OK'd by the doctor. Call the doctor or return for re-examination if there is an increase in bleeding or cramping, or passage of tissue. Urinary Tract Infection Your evaluation indicates that you have a urinary tract infection. This is due to germs growing in the bladder. This is a common problem. This infection usually responds quickly to antibiotics. Your antibiotic should be taken exactly as prescribed. Drink plenty of fluids -- three to four quarts a day. Certain urine infections require a culture. If the doctor obtained a culture, the results will be back in two days. You should call to see if a change in treatment is needed. Call the doctor if you develop fever, chills, flank pain, inability to urinate, or blood in the urine. 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 If you have any heavy bleeding (1 pad an hour), dizziness, fainting, fever, problems urinating, new back pain, or any other worsening or alarming symptoms please return to the emergency department immediately Your sodium and your potassium were slightly low during this visit. Increase your intake of salty foods and water over the next few days before you follow-up with your doctors and discuss this with them then. Prescriptions: Amoxicillin 1 tab PO TID #9 tab Forms: Return to Work
[2020-10-16] MEDS ORDERED: AMOXICILLIN TRIHYDRATE 500 MG CAPSULE PO ONE (04:54)
[2020-10-16] MEDS ORDERED: POTASSIUM CHLORIDE 10 MEQ TABLET.ER PO ONE (04:57)
[2020-10-16 05:06] VITALS: BP 128/61
== END 2020-10-16 05:10 | disposition home or self-care (01) ==
LOC: ER 21:46
DX: O20.0 Threatened abortion (principal); O26.891 Other specified pregnancy related conditions, first trimester; R10.2 Pelvic and perineal pain; R82.71 Bacteriuria; O99.281 Endocrine, nutritional and metabolic diseases complicating pregnancy, first trimester; E87.1 Hypo-osmolality and hyponatremia; E87.6 Hypokalemia; Z67.90 Unspecified blood type, Rh positive; Z3A.01 Less than 8 weeks gestation of pregnancy; Z87.59 Personal history of other complications of pregnancy, childbirth and the puerperium; Z88.1 Allergy status to other antibiotic agents
CPT/HCPCS: 36415; 76817; 80053; 81001; 84702; 85025; 87086; 87088; 87186; 99284